=== PATIENT | male | born 1950 | race Caucasian/White ===

== ENCOUNTER 2017-12-07 20:48 | Observation (INO) | payer MEDICARE, OTHER ==
[2017-12-07] MEDS ORDERED: DILTIAZEM HCL 125 MG/25ML VIAL ONE (20:57)
[2017-12-07] MEDS ORDERED: 0.9 % SODIUM CHLORIDE 100 ML IV ONE (20:57)
[2017-12-07] MEDS ORDERED: DILTIAZEM HCL 25 MG/ 5ML VIAL ONE (21:02)
[2017-12-07] MEDS ORDERED: DILTIAZEM HCL 25 MG/ 5ML VIAL IVP ONE ×2 (21:04→21:31)
[2017-12-07] MEDS ORDERED: DILTIAZEM HCL 125 MG in 0.9 % SODIUM CHLORIDE 100 ML IV STA (21:31)
[2017-12-07 21:34] LABS: BASOPHILS % 0.6 (0.0-1.5); EOSINOPHILS % 1.9 % (0.0-6.8); MEAN CORPUSCULAR HEMOGLOBIN 32.9 pg (28.0-34.0); MONOCYTES % 7.2 % (0.0-11.0); NEUTROPHILS # 3.7 # k/uL (1.4-7.7)
--- NOTE | 2017-12-07 21:37 | ED Physician Documentation ---
General Adult - HISTORIAN Historian: patient, spouse - HPI Stated Complaint: "AFIB" Chief Complaint: General Adult Additional Information: rapid unc at fib onset noon worse approx 1800. denies all other c/o. has had prev self limiting episodes Timing: still present, worse Severity: moderate Last known Well Code/Unknown Code: Known - ROS CONST: no problems EYES/ENT: denies: problems with vision CVS/RESP: denies: chest pain, shortness of breath GI/: none MS/SKIN/LYMPH: none. denies: neck pain, joint pain, leg swelling NEURO/PSYCH: denies: headache, fainting, dizziness, tingling, numbness - PAST HX Past History: hypertension Surgeries/Procedures: other (appy) Allergies/Adverse Reactions: Allergies Allergy/AdvReac Type Severity Reaction Status Date / Time No Known Allergies Allergy Unverified 07/19/15 19:07 Home Medications: Ambulatory Orders Medication Instructions Recorded NK [NK] 07/19/15 - SOCIAL HX Smoking History: non-smoker Alcohol Use: heavy (daily-has holiday heart w/heavy drinking) Drug Use: none - FAMILY HX Family History: No - VITAL SIGNS Vital Signs: Vital Signs Temp Pulse Resp BP Pulse Ox 98.4 F 163 H 18 175/99 97 12/07/17 20:48 12/07/17 20:48 12/07/17 20:48 12/07/17 20:48 12/07/17 20:48 - REVIEWED ASSESSMENTS Nursing Assessment Reviewed: Yes Vitals Reviewed: Yes ED Results Lab/Radiology - Lab Results Lab Results: Lab Results 12/07/17 21:28 WBC 5.30 K/ul K/ul (4.00-12.00) RBC 5.07 M/ul M/ul (3.90-5.20) Hgb 16.7 g/dL g/dL (12.0-18.0) Hct 46.6 % % (37.0-53.0) MCV 92.0 fl fl (80.0-100.0) MCH 32.9 pg pg (28.0-34.0) MCHC 35.7 g/dL g/dL (30.0-36.0) RDW 13.2 % % (11.3-14.3) Plt Count 237 K/mm3 K/mm3 (130-400) Neut % (Auto) 69.4 % % (39.0-79.0) Lymph % (Auto) 19.2 % % (16.0-50.0) [place] % (Auto) 7.2 % % (0.0-11.0) Eos % (Auto) 1.9 % % (0.0-6.8) Baso % (Auto) 0.6 (0.0-1.5) Neut # (Auto) 3.7 # k/uL # k/uL (1.4-7.7) Lymph # (Auto) 1.0 # k/uL # k/uL (0.6-4.0) [place] # (Auto) 0.4 # k/uL # k/uL (0.0-0.9) Eos # (Auto) 0.1 # k/uL # k/uL (0.0-0.6) Baso # (Auto) 0.0 # k/uL # k/uL (0.0-0.5) Reactive Lymphs % 1.7 % % (0.0-5.0) Reactive Lymphs # 0.1 # k/uL # k/uL (0.0-0.8) - Orders Orders: ED Orders Category Date Time Status Place IV Lock 1T Care 12/07/17 21:21 Active CHEST P.A.&LAT 2 VIEWS [RAD] Stat Exams 12/07/17 Ordered CBC/PLATELET/DIFF Routine Lab 12/07/17 21:28 Received CMP Routine Lab 12/07/17 21:27 Received PT-INR Routine Lab 12/07/17 21:28 Received URINALYSIS Routine Lab 12/07/17 Ordered 0.9 % Sodium Chloride [Sodium Chloride] 100 ml Med 12/07/17 20:57 Discontinued IV .STK-MED Diltiazem HCl [Cardizem] Med 12/07/17 21:04 Discontinued 10 mg IVP STAT ONE Diltiazem HCl [Cardizem] Med 12/07/17 21:31 Once 10 mg IVP STAT ONE Diltiazem HCl [Cardizem] Med 12/07/17 20:57 Discontinued 125 mg .ROUTE .STK-MED ONE Diltiazem HCl [Cardizem] Med 12/07/17 21:02 Discontinued 25 mg .ROUTE .STK-MED ONE Diltiazem HCl [Cardizem] 125 mg Med 12/07/17 21:31 Ordered 0.9 % Sodium Chloride [Sodium Chloride] 100 ml IV 1T EKG WITH COMPARISON Stat Ther 12/07/17 Ordered General Adult Physical Exam - PHYSICAL EXAM GENERAL APPEARANCE: no distress EENT: eye inspection normal NECK: normal inspection. No: lymphadenopathy, carotid bruit RESPIRATORY: no resp distress, chest non-tender, breath sounds normal CVS: irregularly irregular rhy (to 160 plus). No: JVD present ABDOMEN: soft, non-tender SKIN: warm/dry, normal color. No: cyanosis, diaphoresis, jaundice, mottled, pallor EXTREMITIES: non-tender, normal range of motion, no edema NEURO: oriented X3, motor nml, sensation nml, mood/affect nml, cognition normal Discharge Clincal Impression: rapid uncontrolled atrial fibrillation, htn Comments: pt better controlled but took xtra meds-disc w/pt will adm Condition: Good Disposition: ADMITTED INPATIENT Decision to Admit: [id number] Decision Time: 22:01
[2017-12-07 21:52] LABS: eGFR (African) > 60; eGFR (Non-African) > 60
[2017-12-07] MEDS ORDERED: SALINE FLUSH 10 ML DISP.SYRIN IVF ONE (23:51)
[2017-12-07 23:59] VITALS: BMI 25.0
[2017-12-08] MEDS ORDERED: ASPIRIN 325 MG TABLET ONE (01:04)
--- NOTE | 2017-12-08 07:00 | Diagnostic Imaging Report ---
SUKHDEEP SUAREZ [facility] [id number] [facility] [address] [id number] Report Submission Date: Dec 07, 2017 9:56:42 PM [employer]ER Patient Study Name: ELIESER BADILLO Date: Dec 07, 2017 9:45:16 PM [employer] Modality Type: CR Gender: M Description: CHEST : 48 Institution: [facility] Physician: SUKHDEEP SUAREZ Portable view of the chest Clinical history: Tachycardia Findings: Heart size is normal. The lungs are clear. Impression: Negative portable chest Electronically signed on Dec 07, 2017 9:56:42 PM [employer]OTH [facility]ULER by: Arya DIETRICH
[2017-12-08] MEDS ORDERED: amLODIPine BESYLATE 5 MG TABLET PO SCH (09:00)
[2017-12-08] MEDS ORDERED: ASPIRIN EC 325 MG TABLET.DR PO ONE (09:00)
[2017-12-08] MEDS ORDERED: POTASSIUM CHLORIDE 20 MEQ TABLET.ER PO ONE (13:11)
[2017-12-08] MEDS ORDERED: MAGNESIUM OXIDE 400 MG TABLET PO SCH (14:00)
[2017-12-08 14:19] VITALS: BP 134/77
--- NOTE | 2017-12-08 16:49 | Discharge Summary ---
Discharge Summary - Discharge Sumary History of Present Illness: Patient admitted through the ER last night with A. Fib by Dr Morales. Cardizem 10mg IV and cardizem drip started. Condition at Discharge: Stable Home Medications: Ambulatory Orders Medication Instructions Recorded Aspirin [Atul] 81 mg PO DAILY 12/07/17 Consultations this Visit: Cardiology (Dr Granda) Procedures this Visit: None Allergies/Adverse Reactions: Allergies Allergy/AdvReac Type Severity Reaction Status Date / Time No Known Allergies Allergy Verified 12/07/17 22:55 Discharge Summary: Patient remained in SR during observation stay. EKG - SB, rate 56, no acute changes. Discussed A Fib history. Patient reports "occassional episodes" of irregular heart beat. States he can "occassionally feel skipped beats". Patient has never had cardiac workup, no holter monitor or event monitor. Strongly encouraged establishing vocational education teacher and holter monitor. Patient agrees with cardiology referral Call to Dr Granda's office, first available appointment Jan 18. Reviewed signs and symptoms to return to ER.
== END 2017-12-08 15:30 | disposition home or self-care (01) ==
LOC: ED 20:48 → SOUTH 23:03
PROVIDERS: ADMIT Family Medicine; ATTEND Emergency Medicine
DX: I48.91 Unspecified atrial fibrillation (principal); I10 Essential (primary) hypertension
CPT/HCPCS: 36415; 71010; 80053; 84484; 85025; 85610; 93005; 96365; 96366; 96375; 99283; A9270; G0378; J3490; 99218; S1016

== ENCOUNTER 2017-12-09 09:31 | Outpatient (CLI) | payer OTHER ==
[2017-12-08 14:19] VITALS: BP 134/77
== END 2017-12-09 09:32 ==
LOC: RT 09:31
PROVIDERS: ATTEND Emergency Medicine
DX: R00.2 Palpitations (principal)
CPT/HCPCS: 93225

== ENCOUNTER 2018-01-18 12:15 | Outpatient (CLI) | payer OTHER | END 2018-01-18 12:16 | LOC: CARD 12:15 | PROVIDERS: ATTEND Internal Medicine Cardiovascular Disease | DX: I48.91 Unspecified atrial fibrillation (principal); I10 Essential (primary) hypertension; I47.2 Ventricular tachycardia | CPT/HCPCS: G0463 ==

== ENCOUNTER 2018-02-01 12:15 | Outpatient (CLI) | payer OTHER | END 2018-02-01 12:30 | LOC: CARD 12:15 | PROVIDERS: ATTEND Internal Medicine Cardiovascular Disease | DX: I48.0 Paroxysmal atrial fibrillation (principal) ==

== ENCOUNTER 2018-03-22 12:17 | Outpatient (CLI) | payer OTHER ==
[2018-03-22 12:34] LABS: BASOPHILS % 0.4 (0.0-1.5); EOSINOPHILS % 2.3 % (0.0-6.8); MEAN CORPUSCULAR HEMOGLOBIN 32.4 pg (28.0-34.0); MEAN CORPUSCULAR VOLUME 90.8 fl (80.0-100.0); MONOCYTES % 6.8 % (0.0-11.0); NEUTROPHILS # 2.7 # k/uL (1.4-7.7)
[2018-03-22 13:02] LABS: eGFR (African) > 60; eGFR (Non-African) > 60
== END 2018-03-22 12:18 ==
LOC: LAB 12:17
PROVIDERS: ATTEND Family Medicine
DX: R73.9 Hyperglycemia, unspecified (principal); I10 Essential (primary) hypertension
CPT/HCPCS: 36415; 80053; 83036; 85025